=== PATIENT | male | born 2000 | race Caucasian/White ===

== ENCOUNTER 2021-02-22 04:32 | Emergency (ER) | payer BC ==
[~2021-02-22] VITALS: Ht 185.4 cm; Wt 97.7 kg
[2021-02-22 04:40] VITALS: BP 135/97; TEMP 98.1
[2021-02-22 06:06] LABS: COLLECTION METHOD CLEAN CATCH
[2021-02-22 06:16] LABS: PH 7 (5-8); SQUAMOUS EPITHELIAL None Seen /hpf; URINE APPEARANCE Clear; URINE BACTERIA None Seen /hpf; URINE BILIRUBIN Negative (NEGATIVE); URINE BLOOD Negative (NEGATIVE); URINE COLOR Straw; URINE GLUCOSE Negative (NEGATIVE); URINE KETONE Negative (NEGATIVE); URINE LEUKOCYTE ESTERASE 2+ (NEGATIVE); URINE NITRATE Negative (NEGATIVE); URINE PROTEIN(semi-quant) Negative (NEGATIVE); URINE UROBILINOGEN Negative (NEGATIVE); URINE WBC >50 /hpf
[2021-02-22 07:00] VITALS: PULSE 75
== END 2021-02-22 07:00 | disposition home or self-care (01) ==
LOC: COL.ER 04:32
PROVIDERS: Emergency Medicine Emergency Medical Services
DX: B34.9 Viral infection, unspecified (principal); Z20.822 Contact with and (suspected) exposure to COVID-19